=== PATIENT | female | born 1955 | race Caucasian/White ===

== ENCOUNTER 2022-09-20 08:44 | Day surgery (SDC) | payer MEDICARE, BC ==
[2022-09-20] MEDS ORDERED: Sodium Chloride 0.9% 1,000 ML IV SCH (09:15)
[2022-09-20] MEDS ORDERED: fentaNYL 50 MCG/ML SDV ONE (09:36)
[2022-09-20] MEDS ORDERED: Midazolam 1 MG/ML 2 ML SDV ONE (09:36)
[2022-09-20] MEDS ORDERED: Propofol 200 MG/20 ML SDV ONE (09:36)
== END 2022-09-20 11:47 | disposition home or self-care (01) ==
LOC: JP.SDS 08:44
PROVIDERS: ATTEND Surgery
DX: Z12.11 Encounter for screening for malignant neoplasm of colon (principal); Z80.0 Family history of malignant neoplasm of digestive organs; Z85.3 Personal history of malignant neoplasm of breast
CPT/HCPCS: J2250; J2704; J3010; J7030